=== PATIENT | male | born 1955 | race Caucasian/White ===

== ENCOUNTER 2019-02-13 07:11 | Day surgery (SDC) | payer MEDICARE, OTHER ==
[~2019-02-13 07:11] MED LIST: AMLODIPINE10 MG PO; ASPIRIN81 MG PO; FERR SULFATE325 MG PO; LANTUS100 UNIT/M IM; LISINOPRIL20 MG PO; MULTI VIT PO; NOVOLO1 SC; OMEPRAZOLE20 M2 PO; PRAVASTATIN20 MG PO; TRADJENTA5 MG PO
[2019-02-13 10:37] VITALS: BP 134/71
== END 2019-02-13 10:50 | disposition home or self-care (01) ==
LOC: ENDO 07:11
PROVIDERS: ATTEND Surgery
PROC: 0DBN8ZX Excision of Sigmoid Colon, Via Natural or Artificial Opening Endoscopic, Diagnostic (ICD-10-PCS; principal; 2019-02-13)
PROC: 0DBL8ZX Excision of Transverse Colon, Via Natural or Artificial Opening Endoscopic, Diagnostic (ICD-10-PCS; 2019-02-13)
PROC: 0DB68ZX Excision of Stomach, Via Natural or Artificial Opening Endoscopic, Diagnostic (ICD-10-PCS; 2019-02-13)
DX: K57.31 Diverticulosis of large intestine without perforation or abscess with bleeding (principal); D12.5 Benign neoplasm of sigmoid colon; D12.3 Benign neoplasm of transverse colon; K64.4 Residual hemorrhoidal skin tags; K29.51 Unspecified chronic gastritis with bleeding; K31.7 Polyp of stomach and duodenum; D64.9 Anemia, unspecified